=== PATIENT | female | born 1955 | race African-American/Black ===

== ENCOUNTER 2016-09-15 17:08 | Emergency (ER) | payer OTHER, MEDICAID ==
[~2016-09-15] VITALS: Ht 167.6 cm; Wt 149.7 kg
[~2016-09-15 17:08] MED LIST: ALPR-229 PO; BUDE20SU; METF-312 PO; PREG75CA PO
[2016-09-15 17:30] VITALS: BP 140/95
[2016-09-15] MEDS ORDERED: ONDANSETRON HCL 4 MG/2 ML VIAL IM ONE (17:30)
[2016-09-15] MEDS ORDERED: HYDROmorphone HCL 2 MG/ML VL IM ONE (17:30)
== END 2016-09-15 19:27 | disposition home or self-care (01) ==
LOC: ER 17:08 → EDBD 17:08 → ER 18:35
DX: M25.552 Pain in left hip (principal); Z88.6 Allergy status to analgesic agent; M19.90 Unspecified osteoarthritis, unspecified site; J44.9 Chronic obstructive pulmonary disease, unspecified; E11.9 Type 2 diabetes mellitus without complications; I10 Essential (primary) hypertension; E07.9 Disorder of thyroid, unspecified; M10.9 Gout, unspecified; F17.210 Nicotine dependence, cigarettes, uncomplicated; Z90.49 Acquired absence of other specified parts of digestive tract; E66.01 Morbid (severe) obesity due to excess calories
CPT/HCPCS: 96372; 99284; J1170; J2405

== ENCOUNTER 2016-11-07 01:20 | Emergency (ER) | payer OTHER, MEDICAID ==
[~2016-11-07] VITALS: Ht 175.3 cm; Wt 122.5 kg
[2016-11-07 02:39] LABS: Basophils # (auto) 0 uL; Basophils % (auto) 0.4 % (0.0-2.0); DEFINITIVE VIEW TRANSMISSION; Eosinophils # (auto) 0.2 uL; Eosinophils % (auto) 2.7 % (0.0-7.0); Hematocrit 41.6 % (36.0-46.0); Hemoglobin 13.1 g/dL (12.2-16.2); Lymphocytes # (auto) 2.5 uL; Mean Corpuscular Hgb Conc. 31.4 g/dL (32.0-36.0); Mean Corpuscular Volume 76.3 fL (80.0-100.0); Mean Platelet Volume 10.3 fL (7.4-10.4); Monocytes # (auto) 0.6 uL; Monocytes % (auto) 8.9 % (0.0-12.0); Neutrophils # (auto) 3.4 uL; Platelet Count (auto) 176 10^3/uL (140-450); SUSPECT VIEW TRANSMISSION; White Blood Cell 6.7 10^3/uL (4.4-10.8)
[2016-11-07 02:48] VITALS: BP 125/81
[2016-11-07 02:59] LABS: Albumin 3.1 g/dL (3.4-5.0); Amylase 84 U/L (25-115); Anion Gap 8 (5-15); Aspartate Aminotransferase 66 U/L (15-37); BUN/Creatinine Ratio 15.7; Blood Urea Nitrogen 21 mg/dL (7-18); Calcium 8.8 mg/dL (8.5-10.1); Carbon Dioxide 19 mmol/L (21-32); Chloride 116 mmol/L (98-107); GFR African American 52 mL/min; GFR Non-African American 43 mL/min; Glucose 108 mg/dL (74-106); Magnesium 1.6 mg/dL (1.6-2.6); Potassium 4.6 mmol/L (3.5-5.1); Sodium 143 mmol/L (136-145)
[2016-11-07 03:04] LABS: Alkaline Phosphatase 179 U/L (45-117); Bilirubin, Total 0.5 mg/dL (0.2-1.0); Total Protein 7.5 g/dL (6.4-8.2)
[2016-11-07] MEDS ORDERED: SODIUM CHLORIDE 0.9% 1,000 ML IV ONE (03:30)
[2016-11-07] MEDS ORDERED: HYDROmorphone HCL 2 MG/ML VL IV ONE (03:30)
[2016-11-07] MEDS ORDERED: ONDANSETRON HCL 4 MG/2 ML VIAL IV ONE (03:30)
== END 2016-11-07 06:03 | disposition home or self-care (01) ==
LOC: ER 01:20 → EDBD 01:20 → ER 06:03
DX: K57.30 Diverticulosis of large intestine without perforation or abscess without bleeding (principal); K44.9 Diaphragmatic hernia without obstruction or gangrene; M19.90 Unspecified osteoarthritis, unspecified site; J44.9 Chronic obstructive pulmonary disease, unspecified; E11.9 Type 2 diabetes mellitus without complications; M10.9 Gout, unspecified; E07.89 Other specified disorders of thyroid; G89.29 Other chronic pain; F17.210 Nicotine dependence, cigarettes, uncomplicated; M54.9 Dorsalgia, unspecified; Z90.49 Acquired absence of other specified parts of digestive tract; Z88.6 Allergy status to analgesic agent
CPT/HCPCS: 36415; 74176; 80053; 82150; 83690; 83735; 84484; 85025; 93005; 96361; 96374; 96375; 99285; J1170; J2405

== ENCOUNTER 2016-12-05 19:51 | Emergency (ER) | payer OTHER, MEDICAID ==
[~2016-12-05] VITALS: Ht 157.5 cm; Wt 154.2 kg
[~2016-12-05 19:51] MED LIST changes: -METF-312 PO; +METF-370 PO
[2016-12-05 21:55] LABS: Basophils # (auto) 0 uL; DEFINITIVE VIEW TRANSMISSION; Eosinophils # (auto) 0.2 uL; Eosinophils % (auto) 1.7 % (0.0-7.0); Hematocrit 44.1 % (36.0-46.0); Lymphocytes # (auto) 3.6 uL; Lymphocytes % (auto) 32.7 % (10.0-50.0); Mean Corpuscular Hemoglobin 24.2 pg (28.0-32.0); Mean Corpuscular Hgb Conc. 31.7 g/dL (32.0-36.0); Mean Corpuscular Volume 76.4 fL (80.0-100.0); Mean Platelet Volume 10.8 fL (7.4-10.4); Monocytes # (auto) 0.7 uL; Monocytes % (auto) 6.1 % (0.0-12.0); Neutrophils # (auto) 6.5 uL; Neutrophils % (auto) 59.5 % (37.0-80.0); Platelet Count (auto) 197 10^3/uL (140-450); Red Cell Distribution Width 14.8 % (11.6-16.0); White Blood Cell 10.9 10^3/uL (4.4-10.8)
[2016-12-05 22:37] LABS: Albumin 3.2 g/dL (3.4-5.0); Alkaline Phosphatase 166 U/L (45-117); Anion Gap 8 (5-15); Aspartate Aminotransferase 54 U/L (15-37); BUN/Creatinine Ratio 17.6; Bilirubin, Total 0.8 mg/dL (0.2-1.0); Blood Urea Nitrogen 22 mg/dL (7-18); Calcium 8.5 mg/dL (8.5-10.1); Carbon Dioxide 21 mmol/L (21-32); Chloride 113 mmol/L (98-107); GFR African American 56 mL/min; GFR Non-African American 46 mL/min; Glucose 122 mg/dL (74-106); Potassium 3.6 mmol/L (3.5-5.1); Sodium 142 mmol/L (136-145); Total Protein 7.8 g/dL (6.4-8.2)
[2016-12-06] MEDS ORDERED: HYDROmorphone HCL 2 MG/ML VL IV ONE ×2 (02:45→05:00)
[2016-12-06] MEDS ORDERED: ONDANSETRON HCL 4 MG/2 ML VIAL IV ONE (02:45)
[2016-12-06] MEDS ORDERED: LABETALOL HCL 5 MG/ML 4ML SYRINGE IV ONE (02:45)
[2016-12-06] MEDS ORDERED: LORazepam 2MG/ML-1ML VIAL IV ONE (03:00)
[2016-12-06 06:16] VITALS: BP 159/95
== END 2016-12-06 06:20 | disposition home or self-care (01) ==
LOC: EDBD 19:51 → ER 20:05
DX: R07.89 Other chest pain (principal); M10.9 Gout, unspecified; F41.9 Anxiety disorder, unspecified; J44.9 Chronic obstructive pulmonary disease, unspecified; E11.9 Type 2 diabetes mellitus without complications; I10 Essential (primary) hypertension; E07.89 Other specified disorders of thyroid; M19.90 Unspecified osteoarthritis, unspecified site; F17.210 Nicotine dependence, cigarettes, uncomplicated; Z88.6 Allergy status to analgesic agent; Z90.49 Acquired absence of other specified parts of digestive tract
CPT/HCPCS: 36415; 71010; 80053; 83735; 84484; 84550; 85025; 93005; 96374; 96375; 96376; 99285; J1170; J2060; J2405; J3490

== ENCOUNTER 2016-12-07 09:46 | Observation (INO) | payer OTHER, MEDICAID ==
[~2016-12-07] VITALS: Ht 167.6 cm; Wt 112.5 kg
[2016-12-07 11:40] LABS: Basophils # (auto) 0 uL; Basophils % (auto) 0.5 % (0.0-2.0); DEFINITIVE VIEW TRANSMISSION; Eosinophils # (auto) 0.1 uL; Eosinophils % (auto) 1.5 % (0.0-7.0); Hematocrit 42.3 % (36.0-46.0); Hemoglobin 13.4 g/dL (12.2-16.2); Lymphocytes # (auto) 1.7 uL; Mean Corpuscular Hemoglobin 24.5 pg (28.0-32.0); Mean Corpuscular Hgb Conc. 31.7 g/dL (32.0-36.0); Mean Corpuscular Volume 77.1 fL (80.0-100.0); Monocytes # (auto) 0.5 uL; Monocytes % (auto) 6.4 % (0.0-12.0); Neutrophils # (auto) 5.5 uL; Neutrophils % (auto) 69.6 % (37.0-80.0); Platelet Count (auto) 175 10^3/uL (140-450); Red Cell Distribution Width 15.1 % (11.6-16.0); White Blood Cell 7.9 10^3/uL (4.4-10.8)
[2016-12-07 12:09] LABS: Albumin 3.1 g/dL (3.4-5.0); Alkaline Phosphatase 135 U/L (45-117); Anion Gap 8 (5-15); Aspartate Aminotransferase 57 U/L (15-37); BUN/Creatinine Ratio 19.2; Bilirubin, Total 0.7 mg/dL (0.2-1.0); Blood Urea Nitrogen 19 mg/dL (7-18); Calcium 8.5 mg/dL (8.5-10.1); Carbon Dioxide 21 mmol/L (21-32); Chloride 115 mmol/L (98-107); GFR African American 73 mL/min; GFR Non-African American 61 mL/min; Glucose 103 mg/dL (74-106); Sodium 144 mmol/L (136-145); Total Protein 7.4 g/dL (6.4-8.2)
[2016-12-07 15:59] VITALS: BP 178/93
[2016-12-07] MEDS ORDERED: KETOROLAC TROMETH 60MG/2ML VIAL IM ONE (17:00)
[2016-12-07] MEDS ORDERED: ONDANSETRON ODT 4 MG TAB PO ONE (17:00)
== END 2016-12-07 18:02 | disposition home or self-care (01) | DRG 556 ==
LOC: ER 09:50 → OVERFLOW 16:51 → ER 18:02
PROVIDERS: ADMIT Family Medicine; ATTEND Family Medicine
DX: M25.50 Pain in unspecified joint (principal); F11.20 Opioid dependence, uncomplicated; E11.9 Type 2 diabetes mellitus without complications; M10.9 Gout, unspecified; J44.9 Chronic obstructive pulmonary disease, unspecified; I10 Essential (primary) hypertension; F17.210 Nicotine dependence, cigarettes, uncomplicated; M54.5 Low back pain; R10.9 Unspecified abdominal pain
CPT/HCPCS: 36415; 74176; 80053; 84484; 85025; 93005; 96372; 99285; G0378; J1885; Q0162

== ENCOUNTER 2016-12-19 19:39 | Emergency (ER) | payer OTHER, MEDICAID ==
[~2016-12-19] VITALS: Ht 162.6 cm; Wt 131.5 kg
[2016-12-19 20:31] LABS: Basophils # (auto) 0 uL; CONDITION Y; DEFINITIVE SEE PRINTOUT; Eosinophils # (auto) 0.2 uL; Mean Corpuscular Volume 77.3 fL (80.0-100.0); Mean Platelet Volume 10.4 fL (7.4-10.4); Monocytes # (auto) 0.8 uL; Red Cell Distribution Width 14.2 % (11.6-16.0)
[2016-12-19 20:41] LABS: Basophils % (auto) 0.3 % (0.0-2.0); Eosinophils % (auto) 2.2 % (0.0-7.0); Hematocrit 46.4 % (36.0-46.0); Hemoglobin 14.4 g/dL (12.2-16.2); Lymphocytes # (auto) 3.2 uL; Lymphocytes % (auto) 30.1 % (10.0-50.0); Monocytes % (auto) 7.4 % (0.0-12.0); Neutrophils # (auto) 6.4 uL; Platelet Count (auto) 233 10^3/uL (140-450); White Blood Cell 10.7 10^3/uL (4.4-10.8)
[2016-12-19 20:53] LABS: Albumin 3.3 g/dL (3.4-5.0); BUN/Creatinine Ratio 12.7; Bilirubin, Total 0.6 mg/dL (0.2-1.0); Calcium 8.7 mg/dL (8.5-10.1); Magnesium 1.9 mg/dL (1.6-2.6); Potassium 3.6 mmol/L (3.5-5.1)
[2016-12-19 20:56] LABS: INR 1.04 (0.9-1.15); Partial Thromboplastin Time 30.8 sec (22.64-33.71); Prothrombin Time 11.3 sec (9.37-12.3)
[2016-12-19 22:17] LABS: B-Type Natriuretic Peptide 77.53 pg/mL (0-100)
[2016-12-19 22:20] LABS: Temperature: 23.3 C (20.0-25.0)
[2016-12-20] MEDS ORDERED: ACETAMINOPHEN 325 MG TAB PO ONE (00:45)
[2016-12-20] MEDS ORDERED: cloNIDine HCL 0.1 MG TAB PO ONE (00:45)
[2016-12-20] MEDS ORDERED: CYCLOBENZAPRINE HCL 10 MG TAB PO ONE (00:45)
[2016-12-20 03:42] VITALS: BP 153/72
== END 2016-12-20 03:44 | disposition home or self-care (01) ==
LOC: EDBD 19:39 → ER 19:48
DX: I10 Essential (primary) hypertension (principal); R51 Headache; M54.9 Dorsalgia, unspecified; G89.29 Other chronic pain; F17.210 Nicotine dependence, cigarettes, uncomplicated; M19.90 Unspecified osteoarthritis, unspecified site; J44.9 Chronic obstructive pulmonary disease, unspecified; E11.9 Type 2 diabetes mellitus without complications; M10.9 Gout, unspecified; Z88.6 Allergy status to analgesic agent; Z90.710 Acquired absence of both cervix and uterus
CPT/HCPCS: 36415; 70450; 71010; 80053; 83735; 83880; 84484; 85025; 85610; 85730; 93005

== ENCOUNTER 2017-02-03 13:25 | Emergency (ER) | payer OTHER, MEDICAID ==
[~2017-02-03] VITALS: Ht 167.6 cm; Wt 142.9 kg
[2017-02-03 14:24] LABS: Basophils # (auto) 0 uL; CONDITION Y; DEFINITIVE SEE PRINTOUT; Eosinophils # (auto) 0 uL; Hematocrit 51.4 % (36.0-46.0); Hemoglobin 16.2 g/dL (12.2-16.2); Lymphocytes # (auto) 0.8 uL; Lymphocytes % (auto) 9.6 % (10.0-50.0); Mean Corpuscular Hemoglobin 23.9 pg (28.0-32.0); Mean Corpuscular Hgb Conc. 31.6 g/dL (32.0-36.0); Mean Corpuscular Volume 75.6 fL (80.0-100.0); Mean Platelet Volume 11.2 fL (7.4-10.4); Monocytes # (auto) 0.4 uL; Monocytes % (auto) 4.7 % (0.0-12.0); Neutrophils # (auto) 7.4 uL; Neutrophils % (auto) 85.7 % (37.0-80.0); Platelet Count (auto) 233 10^3/uL (140-450); SUSPECT SEE PRINTOUT; White Blood Cell 8.6 10^3/uL (4.4-10.8)
[2017-02-03 15:00] VITALS: BP 149/82
[2017-02-03 15:00] LABS: Albumin 3.6 g/dL (3.4-5.0); Bilirubin, Total 1.3 mg/dL (0.2-1.0); Calcium 9.4 mg/dL (8.5-10.1); Potassium 3.5 mmol/L (3.5-5.1); Total Protein 8.7 g/dL (6.4-8.2)
== END 2017-02-03 16:52 | disposition home or self-care (01) ==
LOC: EDBD 13:25 → ER 13:35
DX: R53.1 Weakness (principal); M19.90 Unspecified osteoarthritis, unspecified site; J44.9 Chronic obstructive pulmonary disease, unspecified; M10.9 Gout, unspecified; I10 Essential (primary) hypertension; E11.40 Type 2 diabetes mellitus with diabetic neuropathy, unspecified; E07.9 Disorder of thyroid, unspecified; Z90.49 Acquired absence of other specified parts of digestive tract; F17.210 Nicotine dependence, cigarettes, uncomplicated; Z76.0 Encounter for issue of repeat prescription; Z88.6 Allergy status to analgesic agent
CPT/HCPCS: 36415; 80053; 84484; 85025

== ENCOUNTER 2017-08-28 13:49 | Emergency (ER) | payer BC, MEDICAID, OTHER ==
[~2017-08-28 13:49] MED LIST changes: +AML5T PO; +ASP81EC PO; +HYDR25TA4 PO; +LEVO250T45 PO; +OXYB5TAB61 GT
[2017-08-28 18:18] LABS: Basophils # (auto) 0.2 uL; Basophils % (auto) 1.8 % (0.0-2.0); Eosinophils # (auto) 0.2 uL; Eosinophils % (auto) 2.3 % (0.0-7.0); Hematocrit 50.2 % (36.0-46.0); Hemoglobin 15.4 g/dL (12.2-16.2); Lymphocytes # (auto) 2.3 uL; Lymphocytes % (auto) 27.3 % (10.0-50.0); Mean Corpuscular Hemoglobin 23.8 pg (28.0-32.0); Mean Corpuscular Hgb Conc. 30.7 g/dL (32.0-36.0); Mean Corpuscular Volume 77.3 fL (80.0-100.0); Monocytes # (auto) 0.5 uL; Monocytes % (auto) 6.4 % (0.0-12.0); Neutrophils # (auto) 5.3 uL; Neutrophils % (auto) 62.2 % (37.0-80.0); Nucleated Red Blood Cells % 0.4 %; Platelet Count (auto) 157 10^3/uL (140-450); Red Blood Cells 6.49 10^6/uL (4.0-5.20); Red Cell Distribution Width 14.2 % (11.8-14.3); White Blood Cell 8.5 10^3/uL (4.4-10.8)
[2017-08-28 18:34] LABS: BUN/Creatinine Ratio 12.1; Calcium 8.6 mg/dL (8.5-10.1)
[2017-08-28 19:50] VITALS: BP 201/106
== END 2017-08-28 20:13 | disposition home or self-care (01) ==
LOC: EDUNIT# 13:49 → ER 13:49 → EDBD 13:49 → ER 20:13
DX: R20.0 Anesthesia of skin (principal); R42 Dizziness and giddiness; M19.90 Unspecified osteoarthritis, unspecified site; J44.9 Chronic obstructive pulmonary disease, unspecified; E11.9 Type 2 diabetes mellitus without complications; M10.9 Gout, unspecified; I10 Essential (primary) hypertension; E07.9 Disorder of thyroid, unspecified; F17.210 Nicotine dependence, cigarettes, uncomplicated; Z79.899 Other long term (current) drug therapy; Z88.6 Allergy status to analgesic agent; Z90.49 Acquired absence of other specified parts of digestive tract; Z79.82 Long term (current) use of aspirin; Z86.73 Personal history of transient ischemic attack (TIA), and cerebral infarction without residual deficits
CPT/HCPCS: 36415; 71046; 80048; 83880; 85025

== ENCOUNTER 2018-04-29 09:22 | Emergency (ER) | payer OTHER, MEDICAID ==
[~2018-04-29] VITALS: Ht 167.6 cm; Wt 127.0 kg
[~2018-04-29 09:22] MED LIST changes: +LEVO250T19 PO; -LEVO250T45 PO
[2018-04-29 11:23] LABS: Basophils # (auto) 0 uL; Basophils % (auto) 0.3 % (0.0-2.0); Eosinophils # (auto) 0.3 uL; Monocytes # (auto) 0.6 uL; Neutrophils # (auto) 3.2 uL
[2018-04-29 11:25] LABS: Eosinophils % (auto) 4.8 % (0.0-7.0); Hematocrit 40.1 % (36.0-46.0); Hemoglobin 12.4 g/dL (12.2-16.2); Lymphocytes % (auto) 32.6 % (10.0-50.0); Mean Corpuscular Hgb Conc. 30.9 g/dL (32.0-36.0); Mean Corpuscular Volume 74.4 fL (80.0-100.0); Monocytes % (auto) 9.7 % (0.0-12.0); Neutrophils % (auto) 52.6 % (37.0-80.0); Platelet Count (auto) 168 10^3/uL (140-450); Red Blood Cells 5.39 10^6/uL (4.0-5.20); Red Cell Distribution Width 13.9 % (11.8-14.3); White Blood Cell 6.2 10^3/uL (4.4-10.8)
[2018-04-29 11:44] LABS: Calcium 8.3 mg/dL (8.5-10.1); Chloride 109 mmol/L (98-107); Potassium 4.5 mmol/L (3.5-5.1); Sodium 140 mmol/L (136-145)
[2018-04-29 11:52] LABS: Alanine Aminotransferase 36 U/L (13-56); Albumin 2.7 g/dL (3.4-5.0); Alkaline Phosphatase 175 U/L (45-117); Anion Gap 8 (5-15); Aspartate Aminotransferase 48 U/L (15-37); BUN/Creatinine Ratio 16.5; Bilirubin, Total 0.5 mg/dL (0.2-1.0); Blood Urea Nitrogen 23 mg/dL (7-18); Carbon Dioxide 23 mmol/L (21-32); GFR African American 49 mL/min; GFR Non-African American 41 mL/min; Glucose 95 mg/dL (74-106); Total Protein 7.6 g/dL (6.4-8.2)
[2018-04-29] MEDS ORDERED: SODIUM CHLORIDE 0.9% 500 ML IVB ONE (12:00)
[2018-04-29] MEDS ORDERED: SODIUM CHLORIDE 0.9% 1,000 ML IV ONE (12:00)
[2018-04-29] MEDS ORDERED: PROMETHAZINE HCL 25 MG/ML 1ML IV PRN (12:00)
[2018-04-29 14:07] LABS: Urine Bacteria NONE SEEN /hpf (None Seen); Urine Blood Negative /uL (Negative); Urine Specific Gravity 1.004 (1.001-1.035); Urine WBC 79 /hpf (0 - 5)
[2018-04-29] MEDS ORDERED: cefTRIAXone 1GM/50ML D5W 50 ML IV ONE (14:30)
[2018-04-29] MEDS ORDERED: KETOROLAC TROMETH 30 MG/ML 1ML VIAL IV ONE (14:30)
[2018-04-29 15:25] VITALS: BP 123/92
== END 2018-04-29 14:59 | disposition home or self-care (01) ==
LOC: ER 09:22 → EDBD 09:22 → ER 14:59
DX: N39.0 Urinary tract infection, site not specified (principal); E11.22 Type 2 diabetes mellitus with diabetic chronic kidney disease; I12.9 Hypertensive chronic kidney disease with stage 1 through stage 4 chronic kidney disease, or unspecified chronic kidney disease; N18.9 Chronic kidney disease, unspecified; J44.9 Chronic obstructive pulmonary disease, unspecified; F17.210 Nicotine dependence, cigarettes, uncomplicated; M19.90 Unspecified osteoarthritis, unspecified site; R11.2 Nausea with vomiting, unspecified; E44.0 Moderate protein-calorie malnutrition; I77.4 Celiac artery compression syndrome; I77.1 Stricture of artery; Z79.4 Long term (current) use of insulin; Z90.49 Acquired absence of other specified parts of digestive tract; Z68.42 Body mass index [BMI] 45.0-49.9, adult; Z88.6 Allergy status to analgesic agent; Z79.82 Long term (current) use of aspirin
CPT/HCPCS: 36415; 74176; 80053; 81001; 83690; 83735; 84484; 85025; 93005; 94761; 96361; 96365; 96375; 99285; J0696; J1885; J2550

== ENCOUNTER 2019-05-13 07:11 | Inpatient (IN) | payer OTHER, MEDICAID ==
[~2019-05-13] VITALS: Ht 165.1 cm; Wt 172.4 kg
[2019-05-13] MEDS ORDERED: SODIUM CHLORIDE 0.9% 1,000 ML IV ONE (07:55)
[2019-05-13 09:28] LABS: Basophils # (auto) 0 uL; Eosinophils # (auto) 0.2 uL; Hemoglobin 12.5 g/dL (12.2-16.2); Lymphocytes # (auto) 2.1 uL; Mean Corpuscular Hemoglobin 24.5 pg (28.0-32.0); Mean Corpuscular Volume 77.3 fL (80.0-100.0)
[2019-05-13 09:30] LABS: Basophils % (auto) 0.3 % (0.0-2.0); Eosinophils % (auto) 2.9 % (0.0-7.0); Hematocrit 39.6 % (36.0-46.0); Lymphocytes % (auto) 32.7 % (10.0-50.0); Mean Corpuscular Hgb Conc. 31.7 g/dL (32.0-36.0); Monocytes # (auto) 0.4 uL; Monocytes % (auto) 6.8 % (0.0-12.0); Neutrophils # (auto) 3.7 uL; Neutrophils % (auto) 57.3 % (37.0-80.0); Platelet Count (auto) 110 10^3/uL (140-450); Red Blood Cells 5.12 10^6/uL (4.0-5.20); Red Cell Distribution Width 14.9 % (11.8-14.3); White Blood Cell 6.4 10^3/uL (4.4-10.8)
[2019-05-13 09:40] LABS: INR 1.14 (0.9-1.15); Partial Thromboplastin Time 36.6 sec (23.64-32.05)
[2019-05-13 09:43] LABS: Albumin 2.9 g/dL (3.4-5.0); Anion Gap 4 (5-15); BUN/Creatinine Ratio 12.5; Blood Urea Nitrogen 19 mg/dL (7-18); Calcium 8.3 mg/dL (8.5-10.1); Carbon Dioxide 27 mmol/L (21-32); Chloride 109 mmol/L (98-107); GFR African American 44 mL/min; GFR Non-African American 37 mL/min; Glucose 118 mg/dL (74-106); Potassium 3.8 mmol/L (3.5-5.1); Sodium 140 mmol/L (136-145)
[2019-05-13 09:48] LABS: Alanine Aminotransferase 44 U/L (13-56); Alkaline Phosphatase 148 U/L (45-117); Amylase 132 U/L (25-115); Aspartate Aminotransferase 60 U/L (15-37); Bilirubin, Total 0.8 mg/dL (0.2-1.0); Lipase 118 U/L (73-393); Total Protein 7.7 g/dL (6.4-8.2)
[2019-05-13] MEDS ORDERED: KETOROLAC TROMETH 30 MG/ML 1ML VIAL IV ONE ×2 (10:30→21:30)
[2019-05-13 11:01] LABS: Urine Bacteria NONE SEEN /hpf (None Seen); Urine Blood Negative /uL (Negative); Urine Hyaline Cast FEW /lpf (0 - 2); Urine Specific Gravity 1.009 (1.001-1.035); Urine WBC 209 /hpf (0 - 5); Urine WBC Clumps PRESENT /hpf (None Seen)
[2019-05-13] MEDS ORDERED: cefTRIAXone 1GM/50ML D5W 50 ML IV ONE (11:45)
[2019-05-13] MEDS ORDERED: AZITHROMYCIN 500MG/ 250ML 250 ML IV ONE (11:45)
[2019-05-13] MEDS ORDERED: MELO1TAB56 PO (18:00)
[2019-05-13] MEDS ORDERED: PREGABALIN CAPSULE 75 MG CAP PO PRN ×2 (18:00→18:15)
[2019-05-13] MEDS ORDERED: HYDR-4798 PO (18:00)
[2019-05-13] MEDS ORDERED: FUR20T PO (18:00)
[2019-05-13] MEDS ORDERED: CLO01T PO (18:01)
[2019-05-13] MEDS ORDERED: LEVOFLOXACIN 500MG 100 ML IV ONE (18:15)
[2019-05-13] MEDS ORDERED: ALBUTEROL SULF 2.5 MG/0.5ML(0.5%) NEB SOLN NEB PRN (18:15)
[2019-05-13] MEDS ORDERED: PREGABALIN 25 MG CAP PO PRN (18:15)
[2019-05-13] MEDS ORDERED: IPRATROPIUM BROM 0.5 MG/2.5ML INH SOL NEB PRN (18:15)
[2019-05-13] MEDS ORDERED: hydrALAZINE HCL 20 MG/ML VL IV PRN (18:15)
[2019-05-13 19:57] VITALS: BP 149/98
--- NOTE | 2019-05-13 19:57 | NUR ---
Respiratory note: PT RECIEVED ON RA SPO2 100%, HR 76, RR 23. PT STATED SHE WAS NOT NEEDING A BREATHING TX DOWN IN ER. BS CLR/DIM T/O. NO PRN TX GIVEN AT THIS TIME. WILL CONTINUE TO MONITOR PT T/O SHIFT.
--- NOTE | 2019-05-13 20:45 | NUR ---
Telemetry admit from ER BASILIA ZAVALA admitted to Telemetry unit after SBAR received. Patient oriented to Alvaro Hale, primary RN, unit, room, bed, and unit policies regarding patient care and visiting hours. Patient now on continuous telemetry monitoring, tele box # [25] and telemetry reading on arrival to unit is [SR 83]. Patient weighed by bedscale and encouraged to call if they need something. All questions and concerns addressed, patient verbalized understanding. Note: []
--- NOTE | 2019-05-13 21:00 | NUR ---
BASILIA ZAVALA states they want to leave the floor Against Medical Advice (AMA) to go outside and smoke. Patient encouraged to stay on floor and not smoke. Dr notified of patient's wishes. Patient advised of the risks of leaving AMA. Patient verbalized understanding and signed required AMA form.
--- NOTE | 2019-05-13 21:17 | NUR ---
Called/paged Dr. TREVINO called re:PATIENT REQUESTED TO HAVE PAIN MEDICATION FOR HER GENERALIZED BODY PAIN AND SCIATICA PAIN. ORDER RECEIVED WILL CARRY IT OUT. Continue care.
[2019-05-13 21:25] VITALS: BP 149/98
[2019-05-13] MEDS ORDERED: INFLUENZA QUAD 2019-2020 0.5ml SYRG IM ONE (22:00)
--- NOTE | 2019-05-13 22:15 | NUR ---
PATIENT OFF FLOOR TO SMOKE
--- NOTE | 2019-05-13 22:30 | NUR ---
PATIENT BACK TO FLOOR. NO S/S OF DISTRESS NOTED. CONTINUE TO MONITOR.
[2019-05-13] MEDS: OXYBUTYNIN CHL 5 MG TAB PO SCH (23:02)
--- NOTE | 2019-05-13 23:03 | NUR ---
MEDICATED PATIENT FOR PAIN @ 04/11. CONTINUE TO MONITOR.
[2019-05-14] MEDS: HYDROcodone-ACET 10/325MG TAB PO PRN ×2 (00:21→12:57)
--- NOTE | 2019-05-14 00:25 | NUR ---
NORCO GIVEN FOR PAIN @ 04/11. CONTINUE TO MONITOR.
--- NOTE | 2019-05-14 03:02 | NUR ---
BED BATH BY PSYCHOLOGY PHYSICIAN NOW. PATIENT TOLERATED WELL. CONTINUE CARE.
[2019-05-14 04:30] VITALS: BP 158/93
--- NOTE | 2019-05-14 06:46 | NUR ---
LYRICA GIVEN FOR NEURO PAIN PER PATIENT REQUESTED. CONTINUE TO MONITOR.
[2019-05-14 07:53] LABS: Basophils # (auto) 0 uL; Neutrophils % (auto) 67.2 % (37.0-80.0)
[2019-05-14 07:57] LABS: Basophils % (auto) 0.2 % (0.0-2.0); Eosinophils # (auto) 0.2 uL; Eosinophils % (auto) 2.3 % (0.0-7.0); Hematocrit 41.1 % (36.0-46.0); Hemoglobin 12.7 g/dL (12.2-16.2); Lymphocytes # (auto) 1.7 uL; Lymphocytes % (auto) 23.4 % (10.0-50.0); Mean Corpuscular Hemoglobin 24.5 pg (28.0-32.0); Mean Corpuscular Volume 79.1 fL (80.0-100.0); Monocytes # (auto) 0.5 uL; Monocytes % (auto) 6.9 % (0.0-12.0); Neutrophils # (auto) 4.8 uL; Nucleated Red Blood Cells % 0.1 %; Platelet Count (auto) 114 10^3/uL (140-450); Red Blood Cells 5.19 10^6/uL (4.0-5.20); Red Cell Distribution Width 15.3 % (11.8-14.3); White Blood Cell 7.2 10^3/uL (4.4-10.8)
[2019-05-14 08:00] VITALS: BP 146/104
[2019-05-14 08:05] LABS: Anion Gap 6 (5-15); BUN/Creatinine Ratio 13.9; Blood Urea Nitrogen 20 mg/dL (7-18); Carbon Dioxide 21 mmol/L (21-32); Chloride 110 mmol/L (98-107); GFR African American 47 mL/min; GFR Non-African American 39 mL/min; Glucose 113 mg/dL (74-106); Potassium 4.5 mmol/L (3.5-5.1); Sodium 137 mmol/L (136-145)
[2019-05-14 08:30] VITALS: BP 146/104
[2019-05-14] MEDS ORDERED: LEVOFLOXACIN 500MG 100 ML IV SCH (10:00)
[2019-05-14] MEDS ORDERED: ASPirin-EC 81 mg tab PO SCH (10:00)
[2019-05-14] MEDS ORDERED: amLODIPine BESYLATE 5 MG TAB PO SCH (10:00)
[2019-05-14] MEDS: OXYBUTYNIN CHL 5 MG TAB PO SCH (10:50)
[2019-05-14] MEDS ORDERED: amLODIPine BESYLATE 5 MG TAB PO ONE (12:00)
[2019-05-14 12:30] VITALS: BP 99/57
--- NOTE | 2019-05-14 16:06 | NUR ---
D/C Planning Per consult for SNF placement for physical therapy. Contact [facility] and [facility]. Per Barbara from [facility] Ph:) Fax:) Pt has been accepted to room [address] Anthony Ramesh. Contact [facility] Ph:) fax:) faxed medical records requesting authorization. Per Marylin from [facility] authorization has been faxed to [facility]. Per MICHEL jorge put in discharge order today 05/14/19. Contact [facility] transport Ph:( [phone] Addendum: 05/14/19 at 1632 by DERIK MARIA Amended: Links added. Addendum: 05/14/19 at 1635 by DERIK MARIA Per MICHEL Lira Dr will put in discharge order today 05/14/19. Contact [facility] transport Ph:( [phone]) Fax:) faxed transportation form requesting for transportation to be at 17:00 via [employer] and for them to contact MICHEL Lira. Followed up call to [facility] spoke to June. Informed June Pt will be going to facility today. Informed MICHEL High Spoke to Pt at bedside and provided her with accepting SNF acceptance. Pt verbalize understanding.
[2019-05-14 16:54] VITALS: BP 126/78
--- NOTE | 2019-05-14 18:05 | NUR ---
NOTIFIED PT'S FATHER MR. ZAVALA VIA PHONE # [phone] REGARDING PT WILL BE TRANSFERRED TO [facility] AT 1900 TONIGHT. ALL QUESTIONS AND CONCERNS ADDRESSED. PHONE # AND ADDRESS OF [facility] GIVEN TO MR. ZAVALA.
--- NOTE | 2019-05-14 18:08 | NUR ---
CALLED [facility] VIA # [phone] REPORT GIVEN TO MICHEL RUTLEDGE.
--- NOTE | 2019-05-14 19:24 | NUR ---
Transferred to [facility]. Discharge instructions given as ordered. All questions and concerns addressed. Patient verbalized understanding. IV removed with catheter intact, pressure dressing applied. Medication reconciliation form completed and copy given to patient. Flu Vac given to left deltoid . Telemetry unit returned to ICU. Report given to June Guajardo . Patient transported with all personal belongings, accompanied by four [employer] . No distress noted at time of departure.
[2019-05-15] MEDS ORDERED: amLODIPine BESYLATE 5 MG TAB PO SCH (10:00)
== END 2019-05-14 19:15 | DRG 689 ==
LOC: EDSEX 07:11 → EDBD 07:11 → ER 07:18 → TELE 07:19 → TELE-CENTR 20:37
PROVIDERS: ADMIT Internal Medicine; ATTEND Internal Medicine
DX: N39.0 Urinary tract infection, site not specified (principal); J18.9 Pneumonia, unspecified organism; Z68.44 Body mass index [BMI] 60.0-69.9, adult; E66.01 Morbid (severe) obesity due to excess calories; J44.9 Chronic obstructive pulmonary disease, unspecified; F41.9 Anxiety disorder, unspecified; M19.90 Unspecified osteoarthritis, unspecified site; F17.210 Nicotine dependence, cigarettes, uncomplicated; M54.5 Low back pain; I12.9 Hypertensive chronic kidney disease with stage 1 through stage 4 chronic kidney disease, or unspecified chronic kidney disease; E11.22 Type 2 diabetes mellitus with diabetic chronic kidney disease; N18.3 Chronic kidney disease, stage 3 (moderate); M10.9 Gout, unspecified; R53.81 Other malaise; G89.29 Other chronic pain; E11.42 Type 2 diabetes mellitus with diabetic polyneuropathy; N39.498 Other specified urinary incontinence; Z88.6 Allergy status to analgesic agent; Z82.49 Family history of ischemic heart disease and other diseases of the circulatory system; Z83.3 Family history of diabetes mellitus; Z23 Encounter for immunization; Z90.49 Acquired absence of other specified parts of digestive tract; Z79.82 Long term (current) use of aspirin; Z79.899 Other long term (current) drug therapy
CPT/HCPCS: 36415; 71045; 74176; 80048; 80053; 81001; 82150; 83690; 83880; 84484; 85025; 85610; 85730; 87086; 93005; 94640; G0378; J0696; J1885; J1956

== ENCOUNTER 2019-10-31 08:58 | Inpatient (IN) | payer OTHER, MEDICAID ==
[~2019-10-31] VITALS: Ht 170.2 cm; Wt 153.7 kg
[~2019-10-31 08:58] MED LIST changes: -ALPR-229 PO; -AML5T PO; +AMLO5TAB15 PO; +ASPI-231 PO; -BUDE20SU; +CLO01T PO; +FAMO-12 PO; +FURO1TAB33 PO; +HYDR-4798 PO; +LANS30CA57 PO; -LEVO250T19 PO; +MELO1TAB56 PO; -METF-370 PO; +ONDA-155 PO; -OXYB5TAB61 GT; +PAR20T PO; +PREG20SO OR; -PREG75CA PO
[2019-10-31] MEDS ORDERED: SODIUM CHLORIDE 0.9% 1,000 ML IV ONE (09:05)
[2019-10-31 09:58] LABS: Urine Bacteria NONE SEEN /hpf (None Seen); Urine Blood Negative /uL (Negative); Urine Budding Yeast MANY /hpf (None Seen); Urine Hyaline Cast FEW /lpf (0 - 2); Urine Specific Gravity 1.019 (1.001-1.035); Urine WBC 35 /hpf (0 - 5)
[2019-10-31] MEDS ORDERED: cefTRIAXone 1GM/50ML D5W 50 ML IV ONE (10:45)
[2019-10-31] MEDS ORDERED: AZITHROMYCIN 500MG/ 250ML 250 ML IV ONE (10:45)
[2019-10-31] MEDS ORDERED: ZINC SULFATE 220mg CAP or TAB PO ONE (10:45)
[2019-10-31] MEDS ORDERED: ASCORBIC ACID 500 MG TAB PO ONE (10:45)
[2019-10-31 10:56] LABS: INR 1.18 (0.9-1.15); Partial Thromboplastin Time 30.3 sec (23.64-32.05)
[2019-10-31] MEDS ORDERED: FUROSEMIDE 40 MG/4 ML VIAL IV ONE (11:00)
[2019-10-31 11:06] LABS: Albumin 2.6 g/dL (3.4-5.0); Calcium 8.5 mg/dL (8.5-10.1); Potassium 3.6 mmol/L (3.5-5.1)
[2019-10-31 11:12] LABS: BUN/Creatinine Ratio 18.4; Total Protein 7.1 g/dL (6.4-8.2)
[2019-10-31 11:30] LABS: Basophils # (auto) 0 10 ^3/uL (0-0.2); Basophils % (auto) 0.3 % (0.0-2.0); Eosinophils # (auto) 0.1 10 ^3/uL (0-0.8); Hematocrit 45.2 % (36.0-46.0); Hemoglobin 13.6 g/dL (12.2-16.2); Lymphocytes # (auto) 1.3 10 ^3/uL (0.4-5.4); Lymphocytes % (auto) 14.8 % (10.0-50.0); Mean Corpuscular Hemoglobin 23.3 pg (28.0-32.0); Mean Corpuscular Hgb Conc. 30.1 g/dL (32.0-36.0); Mean Corpuscular Volume 77.7 fL (80.0-100.0); Monocytes # (auto) 0.7 10 ^3/uL (0-1.3); Monocytes % (auto) 7.7 % (0.0-12.0); Neutrophils # (auto) 6.7 10 ^3/uL (1.6-8.6); Neutrophils % (auto) 76.2 % (37.0-80.0); Nucleated Red Blood Cells % 0.1 %; Platelet Count (auto) 140 10^3/uL (140-450); Red Blood Cells 5.82 10^6/uL (4.0-5.20); White Blood Cell 8.8 10^3/uL (4.4-10.8)
[2019-10-31] MEDS ORDERED: FUROSEMIDE 100 MG/10ML VIAL IV ONE (11:45)
[2019-10-31] MEDS ORDERED: INSU1INJ19 (12:16)
[2019-10-31] MEDS ORDERED: hydrocodone (12:16)
[2019-10-31] MEDS ORDERED: FUR20T (12:16)
[2019-10-31] MEDS ORDERED: GLIP2.5T28 (12:16)
[2019-10-31] MEDS ORDERED: OXYB5TAB61 (12:16)
[2019-10-31] MEDS ORDERED: INSREGI (12:16)
[2019-10-31] MEDS ORDERED: AMOX-277 (12:16)
[2019-10-31] MEDS ORDERED: LANS-34 (12:16)
[2019-10-31] MEDS ORDERED: HCTZ25T (12:16)
[2019-10-31] MEDS ORDERED: levoFLOXacin 500MG 100 ML IV ONE (15:00)
[2019-10-31] MEDS ORDERED: ONDANSETRON HCL 4 MG/2 ML VIAL IV PRN (17:45)
[2019-10-31] MEDS ORDERED: DOCUSATE SOD 100 MG CAP PO PRN (17:45)
[2019-10-31] MEDS ORDERED: MORPHINE SULF INJ 2 MG/ML SYRINGE 1ML IV PRN (17:45)
[2019-10-31] MEDS ORDERED: LORazepam 0.5 MG TAB PO PRN (17:45)
[2019-10-31] MEDS ORDERED: ALUM & MAG HYDROX-SIMETH LIQ(MAALOX) 30 ML PO PRN (17:45)
[2019-10-31] MEDS ORDERED: NITROGLYCERIN 0.4 MG SL TAB SL PRN (17:45)
[2019-10-31] MEDS ORDERED: MORPHINE SULFATE 4 MG/ML SYR/VIAL IV PRN (17:45)
[2019-10-31] MEDS: SODIUM CHLORIDE 0.9% 1,000 ML IV SCH ×2 (19:02→21:10)
[2019-10-31 19:44] VITALS: BP 105/70
[2019-10-31] MEDS: HYDROcodone-ACET 5/325MG TAB PO PRN (19:55)
[2019-10-31 20:53] VITALS: BP 105/70
[2019-11-01] VITALS (8 sets, daily range): BP systolic 100–149; BP diastolic 62–88
[2019-11-01] MEDS: SODIUM CHLORIDE 0.9% 1,000 ML IV SCH ×2 (00:15→09:19)
[2019-11-01] MEDS ORDERED: FUROSEMIDE 20 MG/2 ML VIAL IV ONE (00:30)
[2019-11-01] MEDS: HYDROcodone-ACET 5/325MG TAB PO PRN (03:26)
[2019-11-01] MEDS: FUROSEMIDE 20 MG/2 ML VIAL IV SCH ×2 (05:48→18:00)
[2019-11-01] MEDS ORDERED: cefTRIAXone 1GM/50ML D5W 50 ML IV SCH (09:00)
[2019-11-01] MEDS ORDERED: FAMOTIDINE 20 MG TAB PO SCH (10:00)
[2019-11-01] MEDS ORDERED: ASPirin-EC 81 mg tab PO SCH (10:00)
[2019-11-01] MEDS ORDERED: OXYBUTYNIN CHL 5 MG TAB PO SCH (10:00)
[2019-11-01] MEDS ORDERED: PARoxetine 20 MG TAB PO SCH (10:00)
[2019-11-01] MEDS ORDERED: amLODIPine BESYLATE 5 MG TAB PO SCH (10:00)
[2019-11-01 12:22] LABS: BUN/Creatinine Ratio 18.4; Calcium 8.2 mg/dL (8.5-10.1)
[2019-11-01] MEDS ORDERED: IPRATROPIUM BROM 0.5 MG/2.5ML INH SOL NEB ONE (12:30)
[2019-11-01] MEDS ORDERED: IPRATROPIUM BROM 0.5 MG/2.5ML INH SOL NEB PRN (12:30)
[2019-11-01] MEDS ORDERED: DEXTROSE (50%) 50ML SYRG IV PRN (13:15)
[2019-11-01] MEDS ORDERED: InsuLIN REG 1unit/0.01ml Soln (100units/ml) SC ONE (13:30)
[2019-11-01] MEDS ORDERED: CEPH-37 PO (14:58)
[2019-11-01] MEDS ORDERED: FUR20T PO (14:58)
[2019-11-01] MEDS ORDERED: INSULIN LANTUS (GLARGINE) 1 /0.01ml (100units/ml) SC SCH (15:30)
[2019-11-01] MEDS ORDERED: ACCU-CHEK COMFORT CURVE STRIP VI SCH (17:00)
[2019-11-01] MEDS ORDERED: InsuLIN REG 1unit/0.01ml Soln (100units/ml) SC SCH ×2 (17:00→22:00)
== END 2019-11-01 20:27 | disposition home health service (06) | DRG 871 ==
LOC: ER 08:58 → EDBD 08:58 → TELE 08:59 → TELE-CENTR 19:53
PROVIDERS: ADMIT Hospitalist; ATTEND Internal Medicine
DX: A41.9 Sepsis, unspecified organism (principal); J18.9 Pneumonia, unspecified organism; I50.23 Acute on chronic systolic (congestive) heart failure; N39.0 Urinary tract infection, site not specified; E44.0 Moderate protein-calorie malnutrition; N17.9 Acute kidney failure, unspecified; Z68.43 Body mass index [BMI] 50.0-59.9, adult; I13.0 Hypertensive heart and chronic kidney disease with heart failure and stage 1 through stage 4 chronic kidney disease, or unspecified chronic kidney disease; J44.0 Chronic obstructive pulmonary disease with (acute) lower respiratory infection; E11.22 Type 2 diabetes mellitus with diabetic chronic kidney disease; E11.65 Type 2 diabetes mellitus with hyperglycemia; E66.01 Morbid (severe) obesity due to excess calories; F17.210 Nicotine dependence, cigarettes, uncomplicated; G89.29 Other chronic pain; K57.30 Diverticulosis of large intestine without perforation or abscess without bleeding; K76.0 Fatty (change of) liver, not elsewhere classified; N18.9 Chronic kidney disease, unspecified; M54.5 Low back pain; E11.42 Type 2 diabetes mellitus with diabetic polyneuropathy; E03.9 Hypothyroidism, unspecified; K59.00 Constipation, unspecified; R32 Unspecified urinary incontinence; K21.9 Gastro-esophageal reflux disease without esophagitis; Z79.82 Long term (current) use of aspirin; Z82.49 Family history of ischemic heart disease and other diseases of the circulatory system; Z90.49 Acquired absence of other specified parts of digestive tract; Z83.3 Family history of diabetes mellitus; F32.9 Major depressive disorder, single episode, unspecified; G62.9 Polyneuropathy, unspecified
CPT/HCPCS: 36415; 51702; 71045; 74176; 80048; 80053; 81001; 82962; 83605; 83880; 84484; 85025; 85610; 85730; 87040; 93005; 94640; 96361; 96365; 96366; 96367; 96368; 96375; 97163; 99291; G0378; J0696; J1815; J1956

== ENCOUNTER → 2019-12-05 | Emergency (ER) | payer OTHER, MEDICAID ==
[~2019-12-05] VITALS: Ht 165.1 cm; Wt 136.1 kg
[~2019-12-05] MED LIST changes: -ASPI-231 PO; +CEPH-37 PO; +FUR20T PO; -FURO1TAB33 PO; -HYDR25TA4 PO; +INSREGI; +INSU1INJ19; +LANS-34; -LANS30CA57 PO; -MELO1TAB56 PO; +MORPHINE SULF INJ 2 MG/ML SYRINGE 1ML IM ONE; -ONDA-155 PO; +OXYB5TAB61; -PAR20T PO
[2019-12-05 21:23] LABS: Basophils # (auto) 0 10 ^3/uL (0-0.2); Eosinophils # (auto) 0.3 10 ^3/uL (0-0.8); Lymphocytes # (auto) 2.3 10 ^3/uL (0.4-5.4); Mean Corpuscular Hemoglobin 23.8 pg (28.0-32.0); Monocytes # (auto) 0.5 10 ^3/uL (0-1.3); Neutrophils # (auto) 2.6 10 ^3/uL (1.6-8.6); Nucleated Red Blood Cells % 0.1 %; White Blood Cell 5.6 10^3/uL (4.4-10.8)
[2019-12-05 21:24] LABS: Basophils % (auto) 0.3 % (0.0-2.0); Eosinophils % (auto) 4.5 % (0.0-7.0); Hematocrit 39.5 % (36.0-46.0); Hemoglobin 12.2 g/dL (12.2-16.2); Lymphocytes % (auto) 40.3 % (10.0-50.0); Mean Corpuscular Hgb Conc. 30.9 g/dL (32.0-36.0); Monocytes % (auto) 8.2 % (0.0-12.0); Neutrophils % (auto) 46.7 % (37.0-80.0); Platelet Count (auto) 174 10^3/uL (140-450); Red Blood Cells 5.13 10^6/uL (4.0-5.20); Red Cell Distribution Width 15.5 % (11.8-14.3)
[2019-12-05 21:44] LABS: Albumin 2.4 g/dL (3.4-5.0); BUN/Creatinine Ratio 8.5; Calcium 7.9 mg/dL (8.5-10.1); Magnesium 1.8 mg/dL (1.6-2.6); Potassium 3.6 mmol/L (3.5-5.1)
[2019-12-05 21:46] LABS: Bilirubin, Total 0.6 mg/dL (0.2-1.0); Total Protein 6.7 g/dL (6.4-8.2)
[2019-12-06] VITALS: BP 133/60
== END | disposition home or self-care (01) ==
LOC: EDUNIT# 19:18 → EDBD 19:18 → ER 19:23
DX: R60.0 Localized edema (principal); I11.0 Hypertensive heart disease with heart failure; I50.42 Chronic combined systolic (congestive) and diastolic (congestive) heart failure; L89.152 Pressure ulcer of sacral region, stage 2; J44.9 Chronic obstructive pulmonary disease, unspecified; E11.9 Type 2 diabetes mellitus without complications; M10.9 Gout, unspecified; Z88.1 Allergy status to other antibiotic agents; Z88.8 Allergy status to other drugs, medicaments and biological substances; Z88.5 Allergy status to narcotic agent; Z74.01 Bed confinement status
CPT/HCPCS: 36415; 71045; 80053; 83605; 83735; 83880; 85025; 96372